=== PATIENT | male | born 1985 | race Caucasian/White ===

== ENCOUNTER 2019-01-07 10:00 | Emergency (ER) | payer OTHER ==
[~2019-01-07] VITALS: Ht 177.8 cm; Wt 94.4 kg
[2019-01-07 10:32] VITALS: BP 138/86
[2019-01-07] MEDS ORDERED: LIDOCAINE-MPF 1%, 5ML ONE ×3 (10:47→11:33)
[2019-01-07] MEDS ORDERED: DIPH,PERTUSS(ACELL),TET VAC/PF 0.5 ML IM-VACC ONE ×2 (10:47→11:00)
[2019-01-07] MEDS ORDERED: LIDOCAINE-MPF 1%, 5ML INFIL ONE (11:00)
[2019-01-07] MEDS ORDERED: L.E.T SOLUTION TP ONE (11:20)
[2019-01-07] MEDS ORDERED: BACITRACIN ZINC OINT 500U/GM, 0.9 GM ONE (12:03)
== END 2019-01-07 12:21 | disposition home or self-care (01) ==
LOC: ED 12:15
DX: S01.112A Laceration without foreign body of left eyelid and periocular area, initial encounter (principal); F17.200 Nicotine dependence, unspecified, uncomplicated; W45.8XXA Other foreign body or object entering through skin, initial encounter; Y93.89 Activity, other specified; Y92.009 Unspecified place in unspecified non-institutional (private) residence as the place of occurrence of the external cause; Y99.8 Other external cause status
CPT/HCPCS: 12013; 90471; 90715; 99283